=== PATIENT | male | born 1950 | race Caucasian/White ===

== ENCOUNTER 2021-09-13 12:13 | Inpatient (IN) | payer MEDICARE, MEDICAID ==
[~2021-09-13] VITALS: Ht 167.6 cm; Wt 72.0 kg
[2021-09-13 13:32] LABS: HEMOGLOBIN 13.9 gm/dl (14.0-17.5); RED BLOOD COUNT 4.81 M/UL (4.20-5.50); WHITE BLOOD COUNT 26.3 K/UL (4.5-11.0)
[2021-09-13 13:49] LABS: BUN/CREATININE RATIO 31 (0-10)
[2021-09-13] MEDS ORDERED: CLOPIDOGREL75 MG PO (14:36)
[2021-09-13] MEDS ORDERED: FARXIGA5 MG PO (14:37)
[2021-09-13] MEDS ORDERED: PROAIR HFA8.5 GM INH (14:37)
[2021-09-13] MEDS ORDERED: INSULIN LI100 UNIT/2 SQ (14:38)
[2021-09-13] MEDS ORDERED: PRAVASTATIN SOD40 MG PO (14:39)
[2021-09-13] MEDS ORDERED: IPRATROPIU0.2 MG/1 M INH (14:39)
[2021-09-13] MEDS ORDERED: PROTONIX40 MG PO (14:40)
[2021-09-13] MEDS ORDERED: LEXAPRO10 MG PO (14:41)
[2021-09-13] MEDS ORDERED: IBUPROFEN800 MG PO (14:41)
[2021-09-13] MEDS ORDERED: JANUMET 50-5001 EACH PO (14:42)
--- NOTE | 2021-09-14 01:29 | NUR ---
PT HAD REFUSED TO WEAR BIPAP PREVIOUSLY WHEN ENCOURAGED TO TRY. NOW, APPEARS TIRED AND STATES HE'S " NOT FEELING WELL" . NOW IS AGREEABLE TO WEARING BIPAP. RESPIRATORY PRESENT TO PLACE ON BIPAP.
[2021-09-14 05:28] LABS: RED BLOOD COUNT 4.2 M/UL (4.20-5.50); WHITE BLOOD COUNT 16.4 K/UL (4.5-11.0)
[2021-09-14 05:43] LABS: BUN/CREATININE RATIO 35 (0-10)
[2021-09-15 05:10] LABS: BUN/CREATININE RATIO 32 (0-10)
[2021-09-15 09:02] LABS: HEMOGLOBIN 12.3 gm/dl (14.0-17.5); RED BLOOD COUNT 4.25 M/UL (4.20-5.50)
[2021-09-15 09:33] LABS: WHITE BLOOD COUNT 15.1 K/UL (4.5-11.0)
[2021-09-16 04:37] LABS: HEMOGLOBIN 12.8 gm/dl (14.0-17.5); RED BLOOD COUNT 4.52 M/UL (4.20-5.50); WHITE BLOOD COUNT 11.4 K/UL (4.5-11.0)
[2021-09-16 05:20] LABS: BUN/CREATININE RATIO 34 (0-10)
[2021-09-17 09:54] LABS: HEMOGLOBIN 12.9 gm/dl (14.0-17.5); RED BLOOD COUNT 4.46 M/UL (4.20-5.50); WHITE BLOOD COUNT 10.5 K/UL (4.5-11.0)
[2021-09-17 10:39] LABS: BUN/CREATININE RATIO 44 (0-10)
[2021-09-18 11:15] LABS: RED BLOOD COUNT 4.5 M/UL (4.20-5.50); WHITE BLOOD COUNT 13.9 K/UL (4.5-11.0)
[2021-09-18 11:46] LABS: BUN/CREATININE RATIO 48 (0-10)
[2021-09-19 05:07] LABS: HEMOGLOBIN 12.4 gm/dl (14.0-17.5); RED BLOOD COUNT 4.32 M/UL (4.20-5.50); WHITE BLOOD COUNT 11.7 K/UL (4.5-11.0)
[2021-09-19 05:21] LABS: BUN/CREATININE RATIO 55 (0-10)
[2021-09-20 05:14] LABS: HEMOGLOBIN 12.9 gm/dl (14.0-17.5); RED BLOOD COUNT 4.48 M/UL (4.20-5.50); WHITE BLOOD COUNT 10.8 K/UL (4.5-11.0)
[2021-09-20 05:38] LABS: BUN/CREATININE RATIO 46 (0-10)
[2021-09-20 13:09] LABS: ASPERGILLUS FUMAGATUS IGG Negative (Negative); AUREOBASIDIUM PULLULANS IGG Negative (Negative); MICROPOLYSPORA FAENI IGG Negative (Negative); PIGEON SERUM IGG Negative (Negative); THERMOACTINOMYCES SACCHARI IGG Negative (Negative); THERMOACTINOMYCES VULGARIS IGG Negative (Negative)
[2021-09-20 18:11] LABS: ORGANISM ID Not indicated. (.); SPECIMEN SOURCE Urine (.); STREPTOCOCCUS PNEUMONIAE AG Negative (Negative)
[2021-09-21 05:35] LABS: RED BLOOD COUNT 4.46 M/UL (4.20-5.50); WHITE BLOOD COUNT 11.9 K/UL (4.5-11.0)
[2021-09-21 06:28] LABS: BUN/CREATININE RATIO 55 (0-10)
[2021-09-21 11:12] LABS: ANTI-CENTROMERE B ANTIBODIES <0.2 AI (0.0-0.9); ANTI-DNA (DS) AB QN <1 IU/mL (0-9); ANTI-JO-1 <0.2 AI (0.0-0.9); ANTICHROMATIN ANTIBODIES <0.2 AI (0.0-0.9); ANTIRIBOSOMAL P ANTIBODIES <0.2 AI (0.0-0.9); ANTISCLERODERMA-70 ANTIBODIES <0.2 AI (0.0-0.9); RNP ANTIBODIES 0.2 AI (0.0-0.9); SJOGREN'S ANTI-SS-A <0.2 AI (0.0-0.9); SJOGREN'S ANTI-SS-B <0.2 AI (0.0-0.9); SMITH ANTIBODIES <0.2 AI (0.0-0.9); SMITH/RNP ANTIBODIES <0.2 AI (0.0-0.9)
[2021-09-21 12:12] LABS: RHEUMATOID ARTHRITIS FACTOR 11.9 IU/mL (<14.0)
[2021-09-22 07:12] LABS: DSDNA CRITHIDIA LUCILIAE IFA Negative (Negative)
[2021-09-23 03:29] LABS: HEMOGLOBIN 12.7 gm/dl (14.0-17.5); RED BLOOD COUNT 4.44 M/UL (4.20-5.50); WHITE BLOOD COUNT 14.4 K/UL (4.5-11.0)
[2021-09-23 03:48] LABS: BUN/CREATININE RATIO 49 (0-10)
--- NOTE | 2021-09-24 11:52 | NUR ---
PT DURING AMBULATION DROPPED DOWN TO 78% ON HIS O2 SATURATION.
[2021-09-25] MEDS ORDERED: ASPIRIN EC81 MG PO (09:52)
[2021-09-25] MEDS ORDERED: LANTUS INS100 UTS/M1 SQ (09:52)
[2021-09-25] MEDS ORDERED: IPRAT-ALBUT 0.5-3 ML NEB (09:52)
[2021-09-25] MEDS ORDERED: PREDNISONE 20 M20 MG PO (09:52)
[2021-09-25] MEDS ORDERED: LEVOFLOXACIN500 MG PO (09:56)
== END 2021-09-25 11:11 | disposition home or self-care (01) | DRG 871 ==
LOC: PROG CARE 12:13 → CCU 12:13 → PROG CARE 09-21 22:40
PROVIDERS: Internal Medicine; Internal Medicine Critical Care Medicine; Physician Assistant; ADMIT Internal Medicine
PROC: 5A0935A Assistance with Respiratory Ventilation, Less than 24 Consecutive Hours, High Flow/Velocity Cannula (ICD-10-PCS; principal; 2021-09-13)
PROC: 5A09357 Assistance with Respiratory Ventilation, Less than 24 Consecutive Hours, Continuous Positive Airway Pressure (ICD-10-PCS; 2021-09-13)
PROC: 5A0935A Assistance with Respiratory Ventilation, Less than 24 Consecutive Hours, High Flow/Velocity Cannula (ICD-10-PCS; 2021-09-13)
PROC: 3E03329 Introduction of Other Anti-infective into Peripheral Vein, Percutaneous Approach (ICD-10-PCS; 2021-09-13)
PROC: 5A09357 Assistance with Respiratory Ventilation, Less than 24 Consecutive Hours, Continuous Positive Airway Pressure (ICD-10-PCS; 2021-09-14)
PROC: 5A0945A Assistance with Respiratory Ventilation, 24-96 Consecutive Hours, High Flow/Velocity Cannula (ICD-10-PCS; 2021-09-14)
PROC: 5A0955A Assistance with Respiratory Ventilation, Greater than 96 Consecutive Hours, High Flow/Velocity Cannula (ICD-10-PCS; 2021-09-18)
DX: A41.9 Sepsis, unspecified organism (principal); J96.21 Acute and chronic respiratory failure with hypoxia; J12.9 Viral pneumonia, unspecified; Z20.822 Contact with and (suspected) exposure to COVID-19; R65.20 Severe sepsis without septic shock; M10.9 Gout, unspecified; J84.10 Pulmonary fibrosis, unspecified; G47.33 Obstructive sleep apnea (adult) (pediatric); I25.10 Atherosclerotic heart disease of native coronary artery without angina pectoris; E11.9 Type 2 diabetes mellitus without complications; R53.81 Other malaise; Z98.890 Other specified postprocedural states; Z99.81 Dependence on supplemental oxygen; Z79.82 Long term (current) use of aspirin; Z79.4 Long term (current) use of insulin; Z90.49 Acquired absence of other specified parts of digestive tract; Z95.5 Presence of coronary angioplasty implant and graft; Z88.0 Allergy status to penicillin; Z88.8 Allergy status to other drugs, medicaments and biological substances; Z88.6 Allergy status to analgesic agent; Z91.041 Radiographic dye allergy status; Z86.11 Personal history of tuberculosis; Z87.891 Personal history of nicotine dependence; Z87.01 Personal history of pneumonia (recurrent); Z86.16 Personal history of COVID-19
CPT/HCPCS: 36415; 36600; 71045; 71275; 80048; 80053; 80202; 82803; 82962; 83516; 83735; 83880; 85025; 85027; 85610; 86235; 86255; 86331; 86431; 86602; 86609; 86671; 87040; 87070; 87081; 87205; 87278; 87899; 93970; 94640; 94660; 94664; 94760; 97110; 97110-GP-CQ; 97116-GP-CQ; 97161; 97166; 97530-GP-CQ; 97535; J1644; J1650; J1940; J2185; J2920; J3370; J7070; Q9967

== ENCOUNTER 2021-10-12 11:23 | Emergency (ER) | payer MEDICARE ==
[~2021-10-12 11:23] MED LIST: ASPIRIN EC81 MG PO; CLOPIDOGREL75 MG PO; FARXIGA5 MG PO; IBUPROFEN800 MG PO; INSULIN LI100 UNIT/2 SQ; IPRAT-ALBUT 0.5-3 ML NEB; IPRATROPIU0.2 MG/1 M INH; JANUMET 50-5001 EACH PO; LANTUS INS100 UTS/M1 SQ; LEVOFLOXACIN500 MG PO; LEXAPRO10 MG PO; PRAVASTATIN SOD40 MG PO; PREDNISONE 20 M20 MG PO; PROAIR HFA8.5 GM INH; PROTONIX40 MG PO
[2021-10-12 13:22] LABS: HEMOGLOBIN 13.2 gm/dl (14.0-17.5); RED BLOOD COUNT 4.47 M/UL (4.20-5.50)
[2021-10-12 13:47] LABS: WHITE BLOOD COUNT 9.3 K/UL (4.5-11.0)
[2021-10-12 14:15] LABS: BUN/CREATININE RATIO 37 (0-10)
== END 2021-10-12 16:30 | disposition home or self-care (01) ==
LOC: ER1 11:23
PROVIDERS: Physician Assistant
DX: R06.02 Shortness of breath (principal); R09.02 Hypoxemia; E11.9 Type 2 diabetes mellitus without complications; E78.5 Hyperlipidemia, unspecified; Z79.82 Long term (current) use of aspirin; Z79.899 Other long term (current) drug therapy
CPT/HCPCS: 36600; 71045; 80053; 82550; 82553; 82803; 82962; 84484; 85025; 93005; 94664; 99285